=== PATIENT | male | born 1945 | race Caucasian/White ===

== ENCOUNTER 2016-05-31 00:50 | Day surgery (SDC) | payer MEDICARE, OTHER ==
[2016-05-31] VITALS (10 sets, daily range): BP systolic 99–117; BP diastolic 55–76; PULSE 75–99; RESP 13–20; O2SAT 97–100
[~2016-05-31] VITALS: Ht 167.6 cm; Wt 63.0 kg
[~2016-05-31 00:50] MED LIST: ASCO500C6 PO; CHOL10008 PO; FUR20 PO; LIP40 PO; LISI2.5T PO; METO-274 PO; RIVA20TA PO; UBID30CA12 PO
--- NOTE | 2016-05-31 12:45 | NUR ---
ADMISSION NOTE MALE PT ADMITTED FOR HEART CATHETERIZATION. DISCUSSED PLAN OF CARE WITH PT AND BROTHER.SEE ADMIT AND FLOW SHEET
[2016-05-31 13:11] LABS: BASOPHILS % (AUTO) 1.6 % (0-3); EOSINOPHILS % (AUTO) 10.4 % (0-5); MONOCYTES % (AUTO) 8.8 % (4-12); Mean Corpuscular Volume 94.3 fL (81-100); Platelet Count 221 bil/L (150-400)
[2016-05-31] MEDS ORDERED: 0.9% Sodium Chloride 1,000 ML ONE ×2 (13:36→13:56)
[2016-05-31 13:37] LABS: INR 1.01 ratio
[2016-05-31] MEDS ORDERED: Nitroglycerin 50,000 mcg/250 mL D5W Premix IV ONE (13:37)
[2016-05-31] MEDS ORDERED: Heparin 1,000 Unit/mL 10 mL Inj ONE ×2 (13:37)
[2016-05-31] MEDS ORDERED: Heparin 1,000 Units/500 mL NS Premix IV ONE (13:38)
[2016-05-31] MEDS ORDERED: MARIJUANA PO (14:04)
[2016-05-31] MEDS ORDERED: BRIM5DRO10 BOTH_EYES (14:04)
[2016-05-31] MEDS ORDERED: MULT-1073 PO (14:04)
[2016-05-31] MEDS ORDERED: TIMO5DRO5 BOTH_EYES (14:04)
[2016-05-31] MEDS ORDERED: fentaNYL-PF 50 mCg/mL 2 mL Inj ONE (14:09)
--- NOTE | 2016-05-31 15:05 | NUR ---
POST PROCEDURE NOTE RETURNED FROM [employer]IG MECHANIC. SEE FLOW SHEET
--- NOTE | 2016-05-31 15:05 | PCM.CVCATH ---
Cardiac Cath Report Date of Service May 31, 2016 Primary Indication Systolic heart failure Procedure coronary angiography, left heart cath Vascular Access Right radial artery using 5 Fr slender sheath, closure with TR band. Diagnostic Catheters Left main: Brillion 4.0, 5 Fr RCA: Brillion 4.0, 5 Fr Procedure Details Coronary angiography details: The patient was brought to the cardiac catheterization lab in the fasting state. Patient was laid supine on the cardiac catheterization table and the right forearm was prepped and draped in the usual sterile fashion. One percent Xylocaine was infiltrated over the right radial artery. Vascular access was then achieved under ultrasound guidance. Guide wire was used to advance the catheter through the sheath and up into aortic sinuses. After coronary angiography was completed, guide wire was advanced through the catheter ahead of the tip of the catheter and the guide wire along with the catheter were pulled together out of the sheath. Medications/Fluoro Time Medications administered: 1.Fentanyl: 210 mcg IV 2. Midazolam: 2 mg IV 3. Heparin: 5000 units IV 4. Nitroglycerin: 300 mcg IA Fluoroscopy Time: 3.3 minutes, 403 mGy Contrast (Isovue): 40 mls Blood loss: 5 mls Findings 1) Coronary angiography: Left dominance a. Left main is very short and angiographically normal b. LAD is normal caliber vessel with 50% eccentric stenosis after the first diagonal artery and 80% calcific tubular bifurcating stenosis in the mid-vessel involving the second diagonal artery. The second diagonal artery is a medium caliber vessel with ostial 40-50% stenosis. c. LCx is the dominant calcific vessel with mild luminal irregularities and up to 30% stenosis in the mid-vessel. The second obtuse marginal artery is a large caliber vessel with 50% stenosis at the ostium. d. RCA is small caliber non-dominant vessel with no significant disease. 2) Left Heart catheterization: a. LVEDP is normal at 10 mmHg. b. No significant transaortic gradient on catheter pull-back. Complications There were no periprocedural complications identified. 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 Weeks) for PCI of the LAD. 2) Continue with maximal medical management of heart failure. copies to: Padmini Gee MD, Bhrigu R MD May 31, 2016 15:05
--- NOTE | 2016-05-31 18:05 | NUR ---
Pt discharged to home, ambulatory, accompanied by family. Pt given all dischareg instructions, pt returning to diagnostic imaging tomorrow morning at 0930. Pt's Rt radial puncture site CDI, VSS, pt had no further questions at time of d/c.
== END 2016-05-31 23:59 | disposition home or self-care (01) ==
LOC: SOUO 00:50
PROVIDERS: ATTEND Internal Medicine Cardiovascular Disease
DX: I25.10 Atherosclerotic heart disease of native coronary artery without angina pectoris (principal); I50.20 Unspecified systolic (congestive) heart failure
CPT/HCPCS: 36415; 80048; 85025; 85610; 93005; 93458; 99152; 99153; C1769; C1887; C1894; J1644; J2250; J3010; J7030; Q9967

== ENCOUNTER 2016-06-01 01:26 | Observation (INO) | payer MEDICARE, OTHER ==
[~2016-06-01] VITALS: Ht 167.6 cm; Wt 59.0 kg
[2016-06-01] VITALS (12 sets, daily range): BP systolic 102–144; BP diastolic 78–95; PULSE 67–103; RESP 16–18; O2SAT 96–100
[~2016-06-01 01:26] MED LIST changes: +BRIM5DRO10 BOTH_EYES; +MARIJUANA PO; +MULT-1073 PO; +TIMO5DRO5 BOTH_EYES
[2016-06-01] MEDS ORDERED: 0.9% Sodium Chloride 1,000 ML ONE ×3 (09:54→12:39)
[2016-06-01] MEDS ORDERED: Heparin 1,000 Units/500 mL NS Premix IV ONE ×2 (09:54→12:42)
[2016-06-01] MEDS ORDERED: Heparin 1,000 Unit/mL 10 mL Inj ONE ×3 (09:54→12:40)
[2016-06-01] MEDS ORDERED: Nitroglycerin 50,000 mcg/250 mL D5W Premix IV ONE ×2 (10:33→12:40)
[2016-06-01] MEDS ORDERED: fentaNYL-PF 50 mCg/mL 2 mL Inj ONE ×3 (10:46→12:51)
[2016-06-01] MEDS ORDERED: Nitroglycerin 2% 1 Gm Ointment TOPICAL ONE (12:30)
[2016-06-01] MEDS ORDERED: HYDROmorphone 2 mg/mL Inj ONE (12:30)
--- NOTE | 2016-06-01 12:44 | NUR ---
Pt returned from company laborer post stent placement. Pt reporting 9/10 sub sternal chest pain. Pt's VSS, rt groin site stable, Dr. Weeks called. 12 lead EKG obtained, Dilaudid 1mg IV given, pt taken back to company laborer.
--- NOTE | 2016-06-01 13:09 | DI95 ---
[address] [address] INTERVENTIONAL CARDIAC CATHETERIZATION PATIENT: STEPHEN FERRELL : 1945 MR#: [id number] ADMIT: 06/01/2016 JOB ID: [id number] DATE: 06/01/2016 PROCEDURE: Percutaneous intervention on the mid left anterior descending. INDICATION: LV dysfunction. PROCEDURAL DETAILS: The procedure was done via right femoral approach using a 7-Indonesian system. Further details are enumerated in the procedure log to which the coders and the reader are referred. INTERVENTIONAL REPORT: A Voda 3.5 guide was used, and a Leather Piece Inspector wire was placed in the diagonal and a Runthrough in the LAD. Balloon angioplasty was done with a 2.0 and then with a 2.5 balloon. This was a moderately calcified lesion. We had to use a noncompliant balloon to make it yield. Following that, a 3.0 x 28 mm Xience stent was deployed at 16 atmospheres. The proximal part of the stent was post dilated with a 3.25 noncompliant balloon. Final angiographic results were excellent. IMPRESSION: In summary, successful intervention on the mid left anterior descending. Of note, there was excellent TIMI3 flow to the diagonal. There was slight plaque shift but not sufficient to warrant an intervention on the diagonal.
[2016-06-01] MEDS ORDERED: Eptifibatide 20,000 mCg/10 mL Inj ONE (13:11)
--- NOTE | 2016-06-01 13:50 | DI95 ---
[address] [address] INTERVENTIONAL CARDIAC CATHETERIZATION PATIENT: STEPHEN FERRELL : 1945 MR#: [id number] ADMIT: 06/01/2016 JOB ID: [id number] DATE: 06/01/2016 PROCEDURE: Selective left coronary angiography. This patient started complaining of chest discomfort post LAD intervention. An EKG showed a new right bundle branch block with subtle ST-segment elevation anteriorly. He was brought back to the catheterization laboratory. Left groin was prepped and draped. Further details are enumerated in the procedure log. Next, we did a diagnostic angiogram and it suggested that there was a small thrombus or a very localized plaque in the diagonal. This was not noted on his last angiogram. There was slightly sluggish flow in the septal. However, by the end of this procedure, the septal flow had improved significantly. Next, we took additional angiogram in different angles. His at the start of the procedure was 210. He was given additional heparin. I also gave him one dose of IV Integrilin. Following that, repeat angiography showed that this thrombus in his diagonal had resolved or at least becomes significantly smaller. The patient also became pain free. No further intervention was done in the diagonal. The procedure was terminated at that point. In view of this possible thrombus in the diagonal, I am going to switch him from Plavix to prasugrel. Since he has already been loaded with Plavix and he also got a dose of Integrilin, I am not going to load him with prasugrel and instead just give him 10 mg starting tomorrow. I am also going to give him aspirin after he has had dual antiplatelet therapy for a few weeks. His Xarelto can be resumed, and at that point, his aspirin can be stopped.
[2016-06-01] MEDS ORDERED: 0.9% Sodium Chloride 250 ML IV PRN (14:17)
[2016-06-01] MEDS ORDERED: 0.9% Sodium Chloride 1,000 ML IV PRN (14:17)
[2016-06-01] MEDS ORDERED: Atropine 1 mg/10 mL (Code) Syringe IVPUSH PRN (14:20)
[2016-06-01] MEDS ORDERED: Ondansetron 2 mg/mL 2 mL Inj IVPUSH PRN (14:20)
[2016-06-01] MEDS ORDERED: Lidocaine 1%-Epi 1:100,000 20 mL Inj ONE (15:58)
--- NOTE | 2016-06-01 16:01 | NUR ---
Pt transferred to CCU room 2019. Rt groin site continues to have tract ooze, Lt groin site CDI, VSS. Report and pt handoff given to Ariela GODFREY.
[2016-06-01] MEDS ORDERED: Lidocaine 1%-Epi 1:100,000 20 mL Inj SUBQ SCH (16:10)
--- NOTE | 2016-06-01 16:22 | DRSVH ---
[facility] [address] [place] [address] Echocardiogram Report Name: STEPHEN FERRELL LStudy Date: 06/01/2016 Hospital Exam Location: [facility] Gender: Other : 1945 Age: 70 yrs BP: 66/130 mmHg Reason For Study: CHEST PAIN Ordering Physician: Performed By: Kaz Mitchell Interpretation Summary There is no pericardial effusion. Procedure: A limited 2D echocardiogram was performed to assess for pericardial effusion. The study quality was technically adequate. Comparison is made with the echocardiogram of 05/09/16. Pericardium/ Pleura There is no pericardial effusion. Electronically signed by: Neto Weeks on Reading Physician:06/01/2016 04:21 PM
--- NOTE | 2016-06-01 18:14 | NUR ---
Admit to CCU/groin site/activity Pt arrived to CCU from [facility] in stable condition at 1545. A&O x3, denies any chest pain, SOB, N&V. Pt's bilateral groin sites tender upon palpitation. Right groin site still oozing slightly. feed mill lab technician EPIFANIO marr MD and lab support technician came up and injected lid0/epi into site. Both sites star closure, dry gauze and bio occlusive dressing. No hematoma, soft. Good distal pulses. Pt TELE afib with PVCs. At 1745, pt up to chair for meal. Sites remain soft, no hematoma or oozing. pt vitals signs stable, denies dizziness upon rising. Brother at bedside, pt using call light appropriately.
[2016-06-01] MEDS: Brimonidine 0.2% 5 mL Ophthalmic Solution BOTH_EYES SCH (19:45)
[2016-06-01] MEDS: MeTOProlol XL 50 mg ER24 Tablet PO SCH (21:07)
[2016-06-02 04:30] VITALS: BP 104/56; PULSE 88; RESP 11; O2SAT 98
--- NOTE | 2016-06-02 06:32 | NUR ---
Rhythm/activity: Pt up in room with STBY assist mild pain to groin sites. Good distal pulses. Pt did early in shift have some A-fib with RVR resolved after 2030 metoprolol dose.
[2016-06-02 07:24] VITALS: BP 121/64; PULSE 76; RESP 13; O2SAT 97
[2016-06-02] MEDS: Brimonidine 0.2% 5 mL Ophthalmic Solution BOTH_EYES SCH (07:40)
[2016-06-02] MEDS: MeTOProlol XL 50 mg ER24 Tablet PO SCH (07:43)
[2016-06-02] MEDS ORDERED: Ascorbic Acid 500 mg Tablet PO SCH (08:30)
[2016-06-02] MEDS ORDERED: ASPI-973 PO (10:00)
[2016-06-02] MEDS ORDERED: PRAS10TA5 PO (10:00)
--- NOTE | 2016-06-02 10:20 | NUR ---
Case Management: RIOS and Medicare Part D pamphlet delivered and explained. Original placed in chart. Copies left at bedside. Elida Acharya RN
--- NOTE | 2016-06-02 11:17 | NUR ---
DISCHARGE Received orders for patient to discharge home. Vitals stable, telemetry removed. IVs removed from L forearm and R AC, tips intact. Educational materials printed regarding CAD, heart catheterization and new medications. This information was discussed w/ patient and his brother in detail. Groin sites are soft, non-tender, no oozing or hematoma present, but advised patient to keep dressing on until this evening, so full 24 hours implemented. Stressed the importance for care of groin sites and physical limitations. Patient and brother state understanding to all education provided, have no questions at this time. ID card for stent placement given to patient, as well as star closure information for bilateral groin sites. All belongings collected and given to patient. He is escorted from unit at 1115 by RN.
== END 2016-06-02 11:15 | disposition home or self-care (01) ==
LOC: SOUO 01:26 → INTOOBSV 15:41 → CCU 15:41
PROVIDERS: ADMIT Internal Medicine Cardiovascular Disease; ATTEND Internal Medicine Cardiovascular Disease
DX: I25.10 Atherosclerotic heart disease of native coronary artery without angina pectoris (principal); I25.84 Coronary atherosclerosis due to calcified coronary lesion; R07.89 Other chest pain; I24.0 Acute coronary thrombosis not resulting in myocardial infarction; I48.2 Chronic atrial fibrillation; F10.10 Alcohol abuse, uncomplicated; E78.5 Hyperlipidemia, unspecified; N40.1 Benign prostatic hyperplasia with lower urinary tract symptoms; Z87.891 Personal history of nicotine dependence; Z85.46 Personal history of malignant neoplasm of prostate
CPT/HCPCS: 80048; 93005; 93454; 99152; 99153; C1725; C1750; C1760; C1769; C1874; C1887; C9600; J1170; J1200; J1644; J2250; J3010; J7030; Q9967